=== PATIENT | female | born 1975 | race Caucasian/White ===

== ENCOUNTER → 2016-12-27 | Day surgery (SDC) | payer OTHER ==
[~2016-12-27] VITALS: Ht 167.6 cm; Wt 70.0 kg
[~2016-12-27] MED LIST: 0.9% Sodium Chloride 1,000 ML IV PRN; IBUP200C PO; Mirena; Sodium Chloride LOK Flush 10 mL Syringe IV PRN; fentaNYL-PF 50 mCg/mL 2 mL Inj IVPUSH PRN
[2016-12-27 09:06] VITALS: BP 149/104; PULSE 77; RESP 16; O2SAT 100
[2016-12-27 09:49] VITALS: BP 137/96; PULSE 77; RESP 14; O2SAT 92
[2016-12-27 10:01] VITALS: BP 139/90; PULSE 70; RESP 16; O2SAT 94
--- NOTE | 2016-12-27 12:44 | ENDO ---
[address] [address] ENDOSCOPY PROCEDURE PATIENT: EDITH ANDERSON : 1975 MR#: [id number] ADMIT: 12/27/2016 JOB ID: [id number] DATE: 12/27/2016 PROCEDURE: Colonoscopy. INDICATION: Suprapubic pain. The patient's ASA classification is one. Mallampati score is one. MEDICATIONS: Versed 8 mg, fentanyl 125 mcg. INSTRUMENT USED: PCF H 180 AL PREPARATION QUALITY: Good. PROCEDURE DETAILS: After informed consent was obtained, the patient was brought into the GI suite, where she was placed on oxygen via nasal cannula and monitored with continuous pulse oximeter, telemetry, and blood pressure monitoring. A time-out was performed, then she was placed in the left lateral decubitus position and medications were administered for sedation. Digital rectal exam was performed, which was unremarkable. The colonoscope was then inserted into the rectum and advanced under direct visualization to the terminal ileum, which was identified by the presence of the ileocecal valve and villous appearing mucosa of the terminal ileum. Once the terminal ileum was reached, the colonoscope was withdrawn back into the rectum as the mucosa and lumen were examined. In the rectum, retroflexion was performed. Following retroflexion, the remaining air in the rectum was suctioned and the procedure was completed. FINDINGS: 1. Normal appearing terminal ileum. 2. In the mid rectum there was an approximately 8 mm sessile polyp that was removed with a hot snare. 3. Scattered diverticula were seen throughout the left side of the colon. 4. Normal-appearing colon mucosa otherwise from rectum to cecum. IMPRESSION: 1. Left-sided diverticulosis. 2. Rectal polyp. RECOMMENDATIONS: 1. Avoid NSAIDs and anticoagulants for 72 hours. 2. Fiber-rich diet. 3. No findings to explain the patient's suprapubic pain. Recommend followup with primary care provider. 4. Repeat colonoscopy in five years. COMPLICATIONS: None. ESTIMATED BLOOD LOSS: Zero. CC: Ngoc Monaco ND
--- NOTE | 2017-01-01 07:58 | PATH ---
SURGICAL PATHOLOGY Attending Physician:Yosvany Saleem CASE STATUS: Signed Out PATIENT NAME: EDITH ANDERSON PID: [id number] : 1975 DATE COLLECTED:12/27/2016 18:47 SPECIMEN: Rectum, Biopsy CLINICAL HISTORY: 1). RECTAL POLYP FINAL DIAGNOSIS: Rectal Polyp, Biopsy: Tubular adenoma; negative for high-grade dysplasia. ICD10: K63.5 GROSS DESCRIPTION: The specimen is received in one formalin filled container labeled with the patient's name, sublabeled "rectal polyp" and consists of a 0.6 x 0.5 x 0.5 CM portion of tissue which is entirely submitted in one cassette. 12/27/2016DC ICD-9 CODES: CPT CODES: 1: 78209 Electronically Signed Out Ember Cr MD [facility] Pathology [facility], [place] [address] Technical component performed at [facility], [address] [place] [address] Ave[address], [place], [address]
== END | disposition home or self-care (01) ==
LOC: END 00:39
PROVIDERS: ATTEND Internal Medicine Gastroenterology
DX: R10.2 Pelvic and perineal pain (principal); D12.8 Benign neoplasm of rectum; K57.30 Diverticulosis of large intestine without perforation or abscess without bleeding; I10 Essential (primary) hypertension; G43.909 Migraine, unspecified, not intractable, without status migrainosus; F17.210 Nicotine dependence, cigarettes, uncomplicated
CPT/HCPCS: 45385; G0500; J2250; J3010; J7030